=== PATIENT | male | born 1950 | race Caucasian/White ===

== ENCOUNTER 2017-10-20 17:20 | Emergency (ER) | payer MEDICARE, OTHER ==
[~2017-10-20 17:20] MED LIST: PANT40TA25 PO
[2017-10-20] MEDS ORDERED: LIDOCAINE HCL 2% JELLY 5 ML ONE (18:12)
== END 2017-10-20 19:45 | disposition home or self-care (01) ==
LOC: EDH 17:20
DX: R33.9 Retention of urine, unspecified (principal); Z98.890 Other specified postprocedural states
CPT/HCPCS: 51702

== ENCOUNTER 2017-10-23 09:49 | Day surgery (SDC) | payer MEDICARE, OTHER ==
[~2017-10-23] VITALS: Ht 182.9 cm; Wt 73.7 kg
[2017-10-23] VITALS (16 sets, daily range): BP systolic 121–148; BP diastolic 62–82
[2017-10-23 10:26] LABS: BASOPHILS % (AUTO) 0.7 % (0.0-5.0); EOSINOPHILS % (AUTO) 3.4 % (0.0-8.0); HEMATOCRIT 44.6 % (42-54); LYMPHOCYTES % (AUTO) 15.4 % (21.0-51.0); MEAN CORPUSCULAR HEMOGLOBIN 31.6 pg (27.0-33.0); MEAN CORPUSCULAR VOLUME 90.2 fL (79-99); MONOCYTES % (AUTO) 7.7 % (3.0-13.0); NEUTROPHILS % (AUTO) 72.8 % (40.0-77.0); PLATELET COUNT (AUTO) 352 K/uL (130-400); RED BLOOD CELL COUNT(AUTO) 4.95 MIL/uL (4.50-6.20); RED CELL DISTRIBUTION WIDTH 12.6 % (11.0-15.5); WHITE BLOOD COUNT (AUTO) 9.2 K/uL (4.8-10.8)
[2017-10-23] MEDS: CEFTRIAXONE SODIUM 1 GM IVP SCH ×2 (11:00→14:08)
[2017-10-23] MEDS ORDERED: LACTATED RINGERS 1000ML 1,000 ML IV ONE (11:01)
[2017-10-23] MEDS ORDERED: RANI-248 PO (11:28)
[2017-10-23 11:52] LABS: CREATININE 1.4 mg/dL (0.5-1.5); POTASSIUM 4.2 mmol/L (3.5-5.1)
[2017-10-23] MEDS ORDERED: MIDAZOLAM HCL 1 MG/ML 2ML VIAL ONE (14:06)
[2017-10-23] MEDS ORDERED: PROPOFOL 10 MG/ML 20ML VIAL IV ONE (14:08)
[2017-10-23] MEDS ORDERED: FENTANYL CITRATE PF 50 MCG/1 ML 2ML VIAL ONE (14:08)
[2017-10-23] MEDS ORDERED: HYDROMORPHONE HCL 0.5 MG/0.5 ML ML ONE ×2 (15:46→16:03)
[2017-10-23] MEDS ORDERED: OPIUM/BELLADONNA ALKALOIDS 1 EACH SUPP.RECT RC ONE (15:57)
[2017-10-23] MEDS ORDERED: MEPERIDINE-PF 50 MG/ML SYG ONE (16:13)
[2017-10-23] MEDS ORDERED: PHENAZOPYRIDINE HCL 200 MG TABLET ONE (16:39)
[2017-10-23] MEDS ORDERED: KETOROLAC TROMETHAMINE 60 MG/2 ML VIAL ONE (17:13)
== END 2017-10-23 18:25 | disposition home or self-care (01) ==
LOC: DAH 09:49
PROVIDERS: ATTEND Urology
DX: N40.1 Benign prostatic hyperplasia with lower urinary tract symptoms (principal); R33.8 Other retention of urine; N35.9 Urethral stricture, unspecified; Z90.49 Acquired absence of other specified parts of digestive tract; Z98.890 Other specified postprocedural states
CPT/HCPCS: 36415; 52630; 80048; 85025; 88305; A4218; A4340; A4354; A4358; A4510; A4600; J0696; J1170 ×2; J1885; J2175; J2250; J2704; J3010; J7120